=== PATIENT | male | born 1950 | race Caucasian/White ===

== ENCOUNTER 2018-05-03 19:26 | Emergency (ER) | payer BC, MEDICARE ==
[2018-05-03 20:45] LABS: BASO % 0.3 % (0.0-1.0); EOS % 0.1 % (0.0-3.0); HEMATOCRIT 50.4 % (42.0-52.0); HEMOGLOBIN 17.5 g/dl (13.5-17.5); IMMATURE GRANULOCYTE % 0.3 % (0-3.0); LYMPH # 1.8 10^3/uL (1.5-4.5); LYMPH % 12.6 % (24.0-44.0); MEAN CORPUSCULAR HEMOGLOBIN 28.8 pg (27.0-33.0); MEAN CORPUSCULAR HGB CONC 34.7 g/dl (32.0-36.5); MEAN CORPUSCULAR VOLUME 82.9 fl (80.0-96.0); MONO # 1.4 10^3/uL (0.0-0.8); MONO % 9.5 % (0.0-5.0); NEUTROPHILS # 11.1 10^3/uL (1.8-7.7); NEUTROPHILS % 77.2 % (36.0-66.0); PLATELET COUNT, AUTOMATED 215 10^3/uL (150-450); RED BLOOD COUNT 6.08 10^6/uL (4.30-6.10); WHITE BLOOD COUNT 14.4 10^3/uL (4.0-10.0)
[2018-05-03 21:11] LABS: ALBUMIN 4.4 GM/DL (3.2-5.2); ALBUMIN/GLOBULIN RATIO 0.94 (1.00-1.93); ALKALINE PHOSPHATASE 81 U/L (45-117); ALT/SGPT 28 U/L (12-78); ANION GAP 12 MEQ/L (8-16); AST/SGOT 25 U/L (7-37); BLOOD UREA NITROGEN 11 MG/DL (7-18); C REACTIVE PROTEIN QUANTITATIV 7.63 MG/DL (0.00-0.30); CALCIUM LEVEL 9.3 MG/DL (8.8-10.2); CARBON DIOXIDE LEVEL 23 MEQ/L (21-32); CHLORIDE LEVEL 102 MEQ/L (98-107); GLOMERULAR FILTRATION RATE > 60.0 (>49); GLUCOSE, FASTING 107 MG/DL (70-100); MAGNESIUM LEVEL 2.3 MG/DL (1.8-2.4); POTASSIUM SERUM 4.4 MEQ/L (3.5-5.1); SODIUM LEVEL 137 MEQ/L (136-145); TOTAL PROTEIN 9.1 GM/DL (6.4-8.2)
[2018-05-03] MEDS ORDERED: ISOVUE-370 76% 100ML VIAL (Q9967) As Ordered (21:32)
[2018-05-03] MEDS: NS 1,000 ML IV (22:20)
[2018-05-03] MEDS: dexameTHASONE 20 MG/5 ML VIAL (J1100) IV (22:20)
[2018-05-03] MEDS: cefTRIAXone SOD 2 GM in D5W MINI-BAG PLUS 50 ML IV (22:21)
[2018-05-03] MEDS: PERCOCET 5MG/325MG TAB PO (22:49)
[2018-05-03] MEDS: ACETAMINOPHEN TAB 650MG DOSE (2X325MG) PO (23:10)
== END 2018-05-04 00:13 | disposition home or self-care (01) ==
LOC: M ED 05-04 00:13
DX: J20.8 Acute bronchitis due to other specified organisms (principal); J03.80 Acute tonsillitis due to other specified organisms; I10 Essential (primary) hypertension; E03.9 Hypothyroidism, unspecified; E78.5 Hyperlipidemia, unspecified; M50.321 Other cervical disc degeneration at C4-C5 level; M50.322 Other cervical disc degeneration at C5-C6 level; M50.323 Other cervical disc degeneration at C6-C7 level; M25.78 Osteophyte, vertebrae; Z79.82 Long term (current) use of aspirin; Z79.899 Other long term (current) drug therapy; Z91.040 Latex allergy status; Z88.0 Allergy status to penicillin; Z88.2 Allergy status to sulfonamides; Z88.8 Allergy status to other drugs, medicaments and biological substances
CPT/HCPCS: J0696

== ENCOUNTER 2018-05-04 20:14 | Inpatient (IN) | payer BC, MEDICARE ==
[2018-05-04 20:54] LABS: BASO % 0.2 % (0.0-1.0); EOS % 0.1 % (0.0-3.0); HEMATOCRIT 47.8 % (42.0-52.0); HEMOGLOBIN 15.9 g/dl (13.5-17.5); IMMATURE GRANULOCYTE % 0.6 % (0-3.0); LYMPH # 2.2 10^3/uL (1.5-4.5); LYMPH % 11.9 % (24.0-44.0); MEAN CORPUSCULAR HEMOGLOBIN 27.7 pg (27.0-33.0); MEAN CORPUSCULAR HGB CONC 33.3 g/dl (32.0-36.5); MEAN CORPUSCULAR VOLUME 83.3 fl (80.0-96.0); MONO % 10.7 % (0.0-5.0); NEUTROPHILS # 14.3 10^3/uL (1.8-7.7); NEUTROPHILS % 76.5 % (36.0-66.0); PLATELET COUNT, AUTOMATED 298 10^3/uL (150-450); RED BLOOD COUNT 5.74 10^6/uL (4.30-6.10); RED CELL DISTRIBUTION WIDTH 13.8 % (11.5-14.5); WHITE BLOOD COUNT 18.6 10^3/uL (4.0-10.0)
[2018-05-04 21:06] LABS: ALBUMIN/GLOBULIN RATIO 0.89 (1.00-1.93); ALKALINE PHOSPHATASE 73 U/L (45-117); ALT/SGPT 27 U/L (12-78); ANION GAP 8 MEQ/L (8-16); AST/SGOT 16 U/L (7-37); BILIRUBIN,TOTAL 0.5 MG/DL (0.2-1.0); BLOOD UREA NITROGEN 14 MG/DL (7-18); C REACTIVE PROTEIN QUANTITATIV 9.61 MG/DL (0.00-0.30); CALCIUM LEVEL 9.5 MG/DL (8.8-10.2); CARBON DIOXIDE LEVEL 26 MEQ/L (21-32); CHLORIDE LEVEL 102 MEQ/L (98-107); GLOMERULAR FILTRATION RATE > 60.0 (>49); GLUCOSE, FASTING 111 MG/DL (70-100); MAGNESIUM LEVEL 2.1 MG/DL (1.8-2.4); POTASSIUM SERUM 3.7 MEQ/L (3.5-5.1); SODIUM LEVEL 136 MEQ/L (136-145); TOTAL PROTEIN 8.5 GM/DL (6.4-8.2)
[2018-05-04] MEDS ORDERED: ISOVUE-370 76% 100ML VIAL (Q9967) As Ordered (21:25)
[2018-05-04] MEDS: MEROPENEM INJ 1 GM in APPROPRIATE DILUENT 1 EA IV (21:49)
[2018-05-04] MEDS: VANCOMYCIN HCL 1,000 MG, VIAL MATE ADAPTER 1 EACH in D5W 250 ML IV (22:56)
[2018-05-04] MEDS: ACETAMINOPHEN 325 MG/10.15 ML UDC PO (23:15)
[2018-05-04] MEDS: MORPHINE 4 MG/ML 1ML VIAL/SYRINGE (J2270) IV (23:29)
[2018-05-04] MEDS ORDERED: ASPIRIN 325 MG TAB PO (23:30)
[2018-05-05] MEDS: methylPREDNISolone INJ 125 MG/2 ML VIAL (J2930) IV ×2 (00:21→08:28)
[2018-05-05] MEDS: NS 1,000 ML IV ×2 (01:28→12:11)
[2018-05-05] MEDS: CLINDAMYCIN 600 MG in APPROPRIATE DILUENT 1 EA IV ×2 (01:29→08:28)
[2018-05-05] MEDS: LEVOTHYROXINE 75MCG TABLET (0.075MG) PO (05:14)
[2018-05-05] MEDS: PERCOCET 5MG/325MG TAB PO ×3 (05:15→23:15)
[2018-05-05 08:15] LABS: BASO % 0.1 % (0.0-1.0); HEMATOCRIT 43.6 % (42.0-52.0); HEMOGLOBIN 14.9 g/dl (13.5-17.5); IMMATURE GRANULOCYTE % 1.1 % (0-3.0); LYMPH # 0.7 10^3/uL (1.5-4.5); LYMPH % 5.2 % (24.0-44.0); MEAN CORPUSCULAR HEMOGLOBIN 28.2 pg (27.0-33.0); MEAN CORPUSCULAR HGB CONC 34.2 g/dl (32.0-36.5); MEAN CORPUSCULAR VOLUME 82.4 fl (80.0-96.0); MONO # 0.8 10^3/uL (0.0-0.8); MONO % 5.8 % (0.0-5.0); NEUTROPHILS # 11.7 10^3/uL (1.8-7.7); NEUTROPHILS % 87.8 % (36.0-66.0); PLATELET COUNT, AUTOMATED 225 10^3/uL (150-450); RED BLOOD COUNT 5.29 10^6/uL (4.30-6.10); WHITE BLOOD COUNT 13.3 10^3/uL (4.0-10.0)
[2018-05-05] MEDS: amLODIPine 5 MG TAB PO (08:29)
[2018-05-05] MEDS: ROSUVASTATIN 10 MG TAB (CRESTOR) PO (08:29)
[2018-05-05 08:41] LABS: ANION GAP 8 MEQ/L (8-16); BLOOD UREA NITROGEN 14 MG/DL (7-18); CALCIUM LEVEL 8.7 MG/DL (8.8-10.2); CARBON DIOXIDE LEVEL 27 MEQ/L (21-32); CHLORIDE LEVEL 103 MEQ/L (98-107); CREATININE FOR GFR 0.83 MG/DL (0.70-1.30); GLOMERULAR FILTRATION RATE > 60.0 (>49); GLUCOSE, FASTING 147 MG/DL (70-100); POTASSIUM SERUM 4.6 MEQ/L (3.5-5.1); SODIUM LEVEL 138 MEQ/L (136-145)
[2018-05-05] MEDS ORDERED: methylPREDNISolone INJ 125 MG/2 ML VIAL (J2930) IV (09:00)
[2018-05-05 09:31] LABS: C REACTIVE PROTEIN QUANTITATIV 7.41 MG/DL (0.00-0.30)
[2018-05-05 09:33] LABS: ERYTHROCYTE SEDIMENTATION RATE 50 mm/hr (0-20)
[2018-05-05] MEDS: cloNIDine HCL 0.2 MG/24 HR PATCH TOP (12:36)
[2018-05-05] MEDS ORDERED: GLUCAGON FOR INJ 1 MG VIAL (J1610) SC (15:45)
[2018-05-05] MEDS ORDERED: GLUCOSE 4 GM CHEW TABLET PO (15:45)
[2018-05-05] MEDS ORDERED: DEXTROSE 50% 50 ML SYRINGE IV (15:45)
[2018-05-05] MEDS: CLINDAMYCIN 900 MG in APPROPRIATE DILUENT 1 EA IV ×2 (15:52→21:39)
[2018-05-05] MEDS: D5W/0.45% SODIUM CHLORIDE 1,000 ML IV (15:52)
[2018-05-05] MEDS: HYDROCORTISONE 100 MG/2 ML VIAL (J1720) IV ×2 (16:58→23:06)
[2018-05-05 18:14] LABS: BEDSIDE GLUCOSE 140 MG/DL (80-115)
[2018-05-05] MEDS: ACETAMINOPHEN TAB 650MG DOSE (2X325MG) PO (19:14)
[2018-05-05] MEDS: LABETALOL HCL 100 MG/20 ML VIAL IV (22:05)
[2018-05-06] MEDS: hydrALAZINE INJ 20 MG/ML VIAL IV ×7 (00:01→23:41)
[2018-05-06 00:07] LABS: BEDSIDE GLUCOSE 149 MG/DL (80-115)
[2018-05-06] MEDS: ACETAMINOPHEN TAB 650MG DOSE (2X325MG) PO ×4 (01:58→23:40)
[2018-05-06] MEDS: CLINDAMYCIN 900 MG in APPROPRIATE DILUENT 1 EA IV ×4 (04:03→22:17)
[2018-05-06] MEDS: HYDROCORTISONE 100 MG/2 ML VIAL (J1720) IV ×4 (04:03→22:17)
[2018-05-06] MEDS: LABETALOL HCL 100 MG/20 ML VIAL IV ×3 (04:17→16:00)
[2018-05-06] MEDS: LEVOTHYROXINE 75MCG TABLET (0.075MG) PO (05:45)
[2018-05-06 05:49] LABS: BEDSIDE GLUCOSE 145 MG/DL (80-115)
[2018-05-06] MEDS: D5W/0.45% SODIUM CHLORIDE 1,000 ML IV ×2 (05:51→20:54)
[2018-05-06] MEDS: PERCOCET 5MG/325MG TAB PO ×2 (05:52→19:40)
[2018-05-06] MEDS ORDERED: LIDOCAINE 1% MDV 20ML VIAL As Ordered (08:28)
[2018-05-06] MEDS: ROSUVASTATIN 10 MG TAB (CRESTOR) PO (09:05)
[2018-05-06 18:11] LABS: BEDSIDE GLUCOSE 133 MG/DL (80-115)
[2018-05-06 23:39] LABS: BEDSIDE GLUCOSE 127 MG/DL (80-115)
[2018-05-07] MEDS: PERCOCET 5MG/325MG TAB PO ×2 (02:59→09:34)
[2018-05-07] MEDS: hydrALAZINE INJ 20 MG/ML VIAL IV ×2 (04:00→08:00)
[2018-05-07] MEDS: CLINDAMYCIN 900 MG in APPROPRIATE DILUENT 1 EA IV ×4 (04:22→22:53)
[2018-05-07] MEDS: HYDROCORTISONE 100 MG/2 ML VIAL (J1720) IV ×4 (04:22→22:54)
[2018-05-07] MEDS: LEVOTHYROXINE 75MCG TABLET (0.075MG) PO (05:34)
[2018-05-07] MEDS: D5W/0.45% SODIUM CHLORIDE 1,000 ML IV ×2 (07:45→16:24)
[2018-05-07] MEDS: ROSUVASTATIN 10 MG TAB (CRESTOR) PO (09:31)
[2018-05-07 11:42] LABS: BASO % 0.1 % (0.0-1.0); HEMATOCRIT 40.9 % (42.0-52.0); HEMOGLOBIN 13.8 g/dl (13.5-17.5); IMMATURE GRANULOCYTE % 0.7 % (0-3.0); LYMPH # 1.2 10^3/uL (1.5-4.5); LYMPH % 14.8 % (24.0-44.0); MEAN CORPUSCULAR HEMOGLOBIN 28.2 pg (27.0-33.0); MEAN CORPUSCULAR HGB CONC 33.7 g/dl (32.0-36.5); MEAN CORPUSCULAR VOLUME 83.5 fl (80.0-96.0); MONO # 0.9 10^3/uL (0.0-0.8); MONO % 11.1 % (0.0-5.0); NEUTROPHILS % 73.3 % (36.0-66.0); PLATELET COUNT, AUTOMATED 231 10^3/uL (150-450); RED CELL DISTRIBUTION WIDTH 14.3 % (11.5-14.5); WHITE BLOOD COUNT 8.2 10^3/uL (4.0-10.0)
[2018-05-07 11:59] LABS: ANION GAP 6 MEQ/L (8-16); BLOOD UREA NITROGEN 12 MG/DL (7-18); C REACTIVE PROTEIN QUANTITATIV 1.86 MG/DL (0.00-0.30); CALCIUM LEVEL 8.3 MG/DL (8.8-10.2); CARBON DIOXIDE LEVEL 28 MEQ/L (21-32); CHLORIDE LEVEL 107 MEQ/L (98-107); GLOMERULAR FILTRATION RATE > 60.0 (>49); GLUCOSE, FASTING 106 MG/DL (70-100); MAGNESIUM LEVEL 2.5 MG/DL (1.8-2.4); POTASSIUM SERUM 4.3 MEQ/L (3.5-5.1); SODIUM LEVEL 141 MEQ/L (136-145)
[2018-05-07] MEDS: ACETAMINOPHEN TAB 650MG DOSE (2X325MG) PO ×2 (12:17→20:24)
[2018-05-07 16:53] LABS: BEDSIDE GLUCOSE 105 MG/DL (80-115)
[2018-05-07] MEDS: **hydrALAZINE HCL** 25 MG TAB PO (22:54)
[2018-05-08] MEDS: CLINDAMYCIN 900 MG in APPROPRIATE DILUENT 1 EA IV ×4 (04:00→22:45)
[2018-05-08] MEDS: D5W/0.45% SODIUM CHLORIDE 1,000 ML IV ×2 (04:34→17:03)
[2018-05-08] MEDS: HYDROCORTISONE 100 MG/2 ML VIAL (J1720) IV ×4 (05:27→22:19)
[2018-05-08] MEDS: LEVOTHYROXINE 75MCG TABLET (0.075MG) PO (05:37)
[2018-05-08 06:26] LABS: HEMATOCRIT 41.1 % (42.0-52.0); HEMOGLOBIN 13.8 g/dl (13.5-17.5); MEAN CORPUSCULAR HEMOGLOBIN 27.9 pg (27.0-33.0); MEAN CORPUSCULAR HGB CONC 33.6 g/dl (32.0-36.5); PLATELET COUNT, AUTOMATED 245 10^3/uL (150-450); RED BLOOD COUNT 4.95 10^6/uL (4.30-6.10); RED CELL DISTRIBUTION WIDTH 14.1 % (11.5-14.5); WHITE BLOOD COUNT 6.4 10^3/uL (4.0-10.0)
[2018-05-08 06:46] LABS: ANION GAP 9 MEQ/L (8-16); BLOOD UREA NITROGEN 14 MG/DL (7-18); CARBON DIOXIDE LEVEL 26 MEQ/L (21-32); CHLORIDE LEVEL 108 MEQ/L (98-107); CREATININE FOR GFR 0.77 MG/DL (0.70-1.30); GLOMERULAR FILTRATION RATE > 60.0 (>49); GLUCOSE, FASTING 109 MG/DL (70-100); MAGNESIUM LEVEL 2.5 MG/DL (1.8-2.4); POTASSIUM SERUM 3.7 MEQ/L (3.5-5.1); SODIUM LEVEL 143 MEQ/L (136-145)
[2018-05-08] MEDS: ROSUVASTATIN 10 MG TAB (CRESTOR) PO (09:41)
[2018-05-08] MEDS: **hydrALAZINE HCL** 25 MG TAB PO ×2 (09:42→22:19)
[2018-05-08] MEDS: ACETAMINOPHEN TAB 650MG DOSE (2X325MG) PO (17:04)
[2018-05-09] MEDS: HYDROCORTISONE 100 MG/2 ML VIAL (J1720) IV ×2 (04:27→10:38)
[2018-05-09] MEDS: CLINDAMYCIN 900 MG in APPROPRIATE DILUENT 1 EA IV ×2 (04:28→10:38)
[2018-05-09] MEDS: LEVOTHYROXINE 75MCG TABLET (0.075MG) PO (05:36)
[2018-05-09 06:41] LABS: HEMATOCRIT 40.6 % (42.0-52.0); HEMOGLOBIN 13.8 g/dl (13.5-17.5); MEAN CORPUSCULAR HEMOGLOBIN 27.9 pg (27.0-33.0); MEAN CORPUSCULAR VOLUME 82.2 fl (80.0-96.0); PLATELET COUNT, AUTOMATED 241 10^3/uL (150-450); RED BLOOD COUNT 4.94 10^6/uL (4.30-6.10); RED CELL DISTRIBUTION WIDTH 14.1 % (11.5-14.5); WHITE BLOOD COUNT 6.3 10^3/uL (4.0-10.0)
[2018-05-09 06:56] LABS: ANION GAP 9 MEQ/L (8-16); BLOOD UREA NITROGEN 16 MG/DL (7-18); CALCIUM LEVEL 8.1 MG/DL (8.8-10.2); CARBON DIOXIDE LEVEL 27 MEQ/L (21-32); CHLORIDE LEVEL 107 MEQ/L (98-107); CREATININE FOR GFR 0.88 MG/DL (0.70-1.30); GLOMERULAR FILTRATION RATE > 60.0 (>49); GLUCOSE, FASTING 139 MG/DL (70-100); MAGNESIUM LEVEL 2.5 MG/DL (1.8-2.4); POTASSIUM SERUM 3.9 MEQ/L (3.5-5.1); SODIUM LEVEL 143 MEQ/L (136-145)
[2018-05-09] MEDS: ROSUVASTATIN 10 MG TAB (CRESTOR) PO (08:19)
[2018-05-09] MEDS: **hydrALAZINE HCL** 25 MG TAB PO (08:20)
== END 2018-05-09 12:45 | disposition home or self-care (01) | DRG 98 ==
LOC: M MSPAV 05-07 13:22 → M PED 05-05 00:53 → M ED 20:14 → M ED INP 23:20 → M ICU 05-05 16:28
PROC: 0C9 Mouth and Throat, Drainage (ICD-10-PCS; principal; 2018-05-05)
DX: K14.0 Glossitis (principal); T78.3XXA Angioneurotic edema, initial encounter; I10 Essential (primary) hypertension; E78.5 Hyperlipidemia, unspecified; T46.4X5A Adverse effect of angiotensin-converting-enzyme inhibitors, initial encounter; E03.9 Hypothyroidism, unspecified; Z79.899 Other long term (current) drug therapy; Z79.82 Long term (current) use of aspirin; Z88.2 Allergy status to sulfonamides; Z88.0 Allergy status to penicillin; Z91.040 Latex allergy status

== ENCOUNTER → 2022-12-26 | Outpatient (CLI) | payer MEDICARE ==
[~2022-12-26] MED LIST: AMLO1TAB24 PO; AMLO1TAB25 PO; ASPI325T PO; AZIT-12 PO; BACITAB PO; BAYE81TA10 PO; BETA1OI; CEFD300C41 PO; CLIN150C17 PO; CRES20TA2 PO; LASI40TA PO; LEVO75TA4 PO; LIPI20TA; LOSA100T45 PO; MIRT1TAB15 PO; MULTLIQ7; OXYC1TAB23 PO; RAMI1CAP26 PO; SYNT50TA; TESTOSTERONE; VENL75CA47 PO; VITA500T
== END ==
LOC: M WUC 10:24
PROVIDERS: ATTEND Internal Medicine
DX: R06.02 Shortness of breath (principal)

== ENCOUNTER 2024-09-02 07:37 | Day surgery (SDC) | payer MEDICARE ==
[~2024-09-02] VITALS: Ht 190.5 cm; Wt 116.6 kg
[~2024-09-02 07:37] MED LIST changes: +ACET-839 PO; +CEFD1CAP9 PO; -CEFD300C41 PO; +EFFE150C3 PO; +EFFE37.52 PO; -LOSA100T45 PO; +LOSA100T46 PO; +NS 250 ML IV ONE; +RAMI10CA64 PO; -RAMI1CAP26 PO; +ROSU20TA86 PO
[2024-09-02 09:22] VITALS: TEMP 97.2
[2024-09-02 09:50] VITALS: BP 149/78; O2SAT 96
== END 2024-09-02 09:54 | disposition home or self-care (01) ==
LOC: M OPP 07:37
PROVIDERS: ATTEND Surgery
DX: Z12.11 Encounter for screening for malignant neoplasm of colon (principal); D12.3 Benign neoplasm of transverse colon; D12.1 Benign neoplasm of appendix; K64.9 Unspecified hemorrhoids; Z86.0100 Personal history of colon polyps, unspecified; I10 Essential (primary) hypertension; E03.9 Hypothyroidism, unspecified; E78.00 Pure hypercholesterolemia, unspecified; Z79.899 Other long term (current) drug therapy; Z88.0 Allergy status to penicillin; Z88.2 Allergy status to sulfonamides; Z88.8 Allergy status to other drugs, medicaments and biological substances; Z91.040 Latex allergy status

== ENCOUNTER → 2025-01-02 | Outpatient (CLI) | payer MEDICARE ==
[~2025-01-02] MED LIST changes: -NS 250 ML IV ONE
== END ==
LOC: M RAD 09:22
PROVIDERS: ATTEND Physician Assistant Medical
DX: R06.02 Shortness of breath (principal); S22.42XA Multiple fractures of ribs, left side, initial encounter for closed fracture; W01.0XXA Fall on same level from slipping, tripping and stumbling without subsequent striking against object, initial encounter; Y92.9 Unspecified place or not applicable; Y93.9 Activity, unspecified; Y99.9 Unspecified external cause status